=== PATIENT | male | born 1965 | race Caucasian/White ===

== ENCOUNTER 2018-01-01 08:03 | Observation (INO) | payer OTHER ==
[2018-01-01] MEDS: SOD CHLORIDE 0.9% 500 ML IV (09:01)
[2018-01-01] MEDS: DIPHENHYDRAMINE 50 MG INJ IV (09:02)
[2018-01-01] MEDS: METHYLPREDNISOLONE 125 MG INJ IV (09:02)
[2018-01-01] MEDS: FAMOTIDINE 20 MG INJ IV (09:02)
[2018-01-01 09:03] LABS: ADD MAN DIFF? NO
[2018-01-01 09:06] LABS: WHITE BLOOD COUNT 8.2 10^3/ul (4.8-10.8)
[2018-01-01 09:06] LABS: BASOPHILS % 0.2 % (0.0-2.0); EOSINOPHILS # 0.1 10^3/ul (0.0-0.5); EOSINOPHILS % 0.9 % (0.0-7.0); HEMATOCRIT 43.5 % (42.0-52.0); HEMOGLOBIN 14.7 g/dl (14.0-18.0); LYMPHOCYTES # 1.1 10^3/ul (0.8-2.9); LYMPHOCYTES % 13.4 % (15.0-51.0); MEAN CORPUSCULAR HEMOGLOBIN 31.1 pg (29.0-33.0); MEAN CORPUSCULAR HGB CONC 33.8 g/dl (32.0-37.0); MEAN CORPUSCULAR VOLUME 92.2 fl (82.0-101.0); MEAN PLATELET VOLUME 9.3 fl (7.4-10.4); MONOCYTE # 0.5 10^3/ul (0.3-0.9); NEUTROPHIL # 6.5 10^3/ul (1.6-7.5); PLATELET COUNT 290 10^3/UL (140-415); RED BLOOD COUNT 4.72 10^6/ul (4.70-6.10); RED CELL DISTRIBUTION WIDTH 13.4 % (11.5-14.5)
[2018-01-01 09:24] LABS: ALANINE AMINOTRANSFERASE 27 IU/L (13-69); ALBUMIN 4.2 g/dl (3.3-4.9); ALBUMIN/GLOBULIN RATIO 1.07; ALKALINE PHOSPHATASE 69 IU/L (42-121); ANION GAP 15 (8-16); ASPARTATE AMINO TRANSFERASE 29 IU/L (15-46); BILIRUBIN,INDIRECT 0.4 mg/dl (0-1.1); BILIRUBIN,TOTAL 0.4 mg/dl (0.2-1.3); BLOOD UREA NITROGEN 12 mg/dl (7-20); CALCIUM 9.4 mg/dl (8.4-10.2); CARBON DIOXIDE 26 mmol/L (21-31); CHLORIDE 106 mmol/L (97-110); GLUCOSE 142 mg/dl (70-220); LIPASE 41 U/L (23-300); SODIUM 143 mmol/L (135-144); TOTAL PROTEIN 8.1 g/dl (6.1-8.1)
[2018-01-01 09:37] LABS: TROPONIN-I < 0.012 ng/ml (0.000-0.120)
[2018-01-01] MEDS ORDERED: hydrALAzine 20 MG INJ (10:43)
[2018-01-01] MEDS: hydrALAzine 20 MG INJ IV (11:36)
[2018-01-01] MEDS ORDERED: NACL 0.9% 3 ML SYG IV (14:30)
[2018-01-01] MEDS ORDERED: DEXTROSE 50% 50 ML SYRINGE IV ×2 (14:30)
[2018-01-01] MEDS ORDERED: hydrALAzine 20 MG INJ IV (14:30)
[2018-01-01] MEDS ORDERED: FAMOTIDINE 20 MG TAB PO (14:30)
[2018-01-01] MEDS ORDERED: GLUCAGON 1 MG INJ IM (14:30)
[2018-01-01] MEDS ORDERED: GLUCOSE GEL 15 GRAM TUBE PO ×2 (14:30)
[2018-01-01] MEDS ORDERED: GLUCOSE GEL 15 GRAM TUBE BUCCAL (14:30)
[2018-01-01] MEDS: DIPHENHYDRAMINE 25 MG CAP PO ×2 (14:30→22:03)
[2018-01-01] MEDS ORDERED: ACETAMINOPHEN 325 MG TAB PO (14:30)
[2018-01-01] MEDS ORDERED: ONDANSETRON 4 MG INJ IV (14:30)
[2018-01-01 14:38] LABS: C-REACTIVE PROTEIN 0.6 mg/dl (0.0-0.9)
[2018-01-01 14:57] LABS: COMPLEMENT C4 25 mg/dl (14-44)
[2018-01-01] MEDS: METHYLPREDNISOLONE 40 MG INJ IV ×2 (16:12→22:03)
[2018-01-01] MEDS: AMLODIPINE 5 MG TAB PO (16:13)
[2018-01-01 16:20] LABS: ERYTHROCYTE SEDIMENTATION RATE 32 mm/Hr (0-20)
[2018-01-01] MEDS: INSULIN ASPART [NOVOLOG] 3 ML PEN SC ×3 (18:07→20:49)
[2018-01-01] MEDS: FAMOTIDINE 20 MG TAB PO (20:39)
[2018-01-01] MEDS: ATORVASTATIN 40 MG TAB PO (20:39)
[2018-01-02] MEDS: ACCU-CHEK XX (01:25)
[2018-01-02] MEDS: DIPHENHYDRAMINE 25 MG CAP PO (06:00)
[2018-01-02] MEDS: METHYLPREDNISOLONE 40 MG INJ IV (06:00)
[2018-01-02 06:20] LABS: ADD MAN DIFF? NO
[2018-01-02 06:31] LABS: WHITE BLOOD COUNT 11.3 10^3/ul (4.8-10.8)
[2018-01-02 06:31] LABS: HEMATOCRIT 44.5 % (42.0-52.0); HEMOGLOBIN 14.5 g/dl (14.0-18.0); LYMPHOCYTES # 0.7 10^3/ul (0.8-2.9); LYMPHOCYTES % 6.4 % (15.0-51.0); MEAN CORPUSCULAR HEMOGLOBIN 30.3 pg (29.0-33.0); MEAN CORPUSCULAR HGB CONC 32.6 g/dl (32.0-37.0); MEAN CORPUSCULAR VOLUME 92.9 fl (82.0-101.0); MEAN PLATELET VOLUME 9.5 fl (7.4-10.4); MONOCYTE # 0.4 10^3/ul (0.3-0.9); MONOCYTES % 3.2 % (0.0-11.0); NEUTROPHIL # 10.2 10^3/ul (1.6-7.5); PLATELET COUNT 301 10^3/UL (140-415); RED BLOOD COUNT 4.79 10^6/ul (4.70-6.10); RED CELL DISTRIBUTION WIDTH 13.4 % (11.5-14.5)
[2018-01-02 06:33] LABS: HEMOGLOBIN A1C 6.2 % (0-5.9)
[2018-01-02 06:43] LABS: ANION GAP 15 (8-16); BLOOD UREA NITROGEN 12 mg/dl (7-20); CALCIUM 9.5 mg/dl (8.4-10.2); CARBON DIOXIDE 26 mmol/L (21-31); CHLORIDE 106 mmol/L (97-110); CHOLESTEROL 224 mg/dl (100-200); CREATININE 0.58 mg/dl (0.61-1.24); GLUCOSE 150 mg/dl (70-220); HDL CHOLESTEROL 44 mg/dl (28-71); LDL CHOLESTEROL,CALCULATED 167 mg/dl; MAGNESIUM 2.2 mg/dl (1.7-2.5); PHOSPHORUS 4.1 mg/dl (2.5-4.9); POTASSIUM 4.3 mmol/L (3.5-5.1); SODIUM 143 mmol/L (135-144); TRIGLYCERIDES 67 mg/dl (0-149)
[2018-01-02] MEDS: INSULIN ASPART [NOVOLOG] 3 ML PEN SC ×2 (07:58→08:06)
[2018-01-02] MEDS: FAMOTIDINE 20 MG TAB PO (08:12)
[2018-01-02] MEDS: HYDROCHLOROTHIAZIDE 25 MG TAB PO (08:12)
[2018-01-02] MEDS: AMLODIPINE 5 MG TAB PO (08:12)
== END 2018-01-02 12:00 | disposition home or self-care (01) ==
LOC: E/R 08:03 → 6WM 11:00
DX: T78.3XXA Angioneurotic edema, initial encounter (principal); E78.5 Hyperlipidemia, unspecified; J98.11 Atelectasis; I10 Essential (primary) hypertension
CPT/HCPCS: 36415; 71045; 80048; 80053; 80061; 82962; 83036; 83690; 83735; 84100; 84484; 85025; 85651; 86140; 86160; 93005; 96361; 96374; 96375; 99217; 99291-25; G0378